=== PATIENT | female | born 1950 | race Caucasian/White ===

== ENCOUNTER → 2017-02-02 | Outpatient (CLI) | payer OTHER ==
[~2017-02-02] MED LIST: ALPR0.25 PO; BUSP10TA PO; CA C1TAB28 PO; CARV6.252 PO; ESZO2TAB33 PO; IOHEXOL 240 MG/ML 50ML VIAL. ONE; IOHEXOL 240 MG/ML 50ML VIAL. PO ONE; IOHEXOL 300 MG/ML 75 ML VIAL. IV ONE
[2017-02-02 15:49] LABS: BASO % 1 % (0-3); EOS % 1 % (0-3); HEMATOCRIT 39.1 % (36.0-47.0); HEMOGLOBIN 13.3 g/dL (12.0-15.5); LYMPH # 1.4 x10^3/uL (1.0-4.8); LYMPH % 28 % (24-48); MEAN CORPUSCULAR HEMOGLOBIN 31 pg (25-35); MEAN CORPUSCULAR HGB CONC 34 g/dL (31-37); MEAN CORPUSCULAR VOLUME 91 fL (79-100); MONO # 0.4 x10^3/uL (0.0-1.1); MONO % 7 % (0-9); NEUT # 3.2 x10^3uL (1.8-7.7); NEUT % 63 % (31-73); PLATELET COUNT 216 x10^3/uL (140-400); RED BLOOD COUNT 4.28 x10^6/uL (3.50-5.40); WHITE BLOOD COUNT 5.1 x10^3/uL (4.0-11.0)
[2017-02-02 15:57] LABS: ALBUMIN/GLOBULIN RATIO 1.3 (1.0-1.7); CALCIUM 9.1 mg/dL (8.5-10.1); GFR 55.8; POTASSIUM 3.8 mmol/L (3.5-5.1); TOTAL BILIRUBIN 0.3 mg/dL (0.2-1.0); TOTAL PROTEIN 7.1 g/dL (6.4-8.2)
--- NOTE | 2017-02-02 17:06 | RAD ---
EXAM: Abdomen and pelvis CT with intravenous contrast. HISTORY: Pain. TECHNIQUE: Computed tomographic images of the abdomen and pelvis were obtained following the administration of 75 cc Omnipaque 300 intravenous contrast. Multiplanar reformatting was performed. COMPARISON: Chest CT dated 11/09/2013. FINDINGS: Evaluation of the lower thorax demonstrates lingular and right middle lobe atelectasis or scarring. No focal hepatic lesion is seen. The gallbladder, pancreas, spleen and right adrenal gland are unremarkable. There is a 1.4 cm left adrenal nodule. There are small lateral renal cysts, the largest of which measures 2.4 cm within the left lower pole. The appendix is unremarkable. No abnormally thickened or dilated loop of bowel is seen. The uterus is surgically absent. There is no pathologically enlarged lymph node. There is no suspicious osseous lesion. IMPRESSION: 1. No acute abdominal or pelvic finding. 2. 1.4 cm left adrenal nodule. The stability of this finding compared to the study dated 11/09/2013 favors benignity. However, the attenuation of this lesion is not typical for an adenoma. Continued follow-up can be performed to confirm stability. 3. Bilateral renal cysts. PQRS Compliance Statement: One or more of the following individualized dose reduction techniques were utilized for this examination: 1. Automated exposure control 2. Adjustment of the mA and/or kV according to patient size 3. Use of iterative reconstruction technique
== END | disposition home or self-care (01) ==
LOC: CT 15:08
PROVIDERS: ATTEND Family Medicine
DX: R10.31 Right lower quadrant pain (principal); R10.11 Right upper quadrant pain
CPT/HCPCS: 36415; 74177; 80053; 82150; 83690; 85027; Q9966; Q9967

== ENCOUNTER → 2017-03-02 | Outpatient (CLI) | payer OTHER ==
[~2017-03-02] MED LIST changes: -IOHEXOL 240 MG/ML 50ML VIAL. ONE; -IOHEXOL 240 MG/ML 50ML VIAL. PO ONE; -IOHEXOL 300 MG/ML 75 ML VIAL. IV ONE
--- NOTE | 2017-03-02 16:15 | RAD ---
Exam: PA and lateral chest radiograph History: Pneumonia for 3 weeks. Comparison: 11/08/2013. Findings: Cardiomediastinal silhouette is within normal limits for size. Bilateral lung whaley are free of focal infiltrate. No pleural effusion is seen. Cervicothoracic junction demonstrates spinal fusion changes. Impression: No acute cardiopulmonary process.
== END | disposition home or self-care (01) ==
LOC: RAD 15:53
PROVIDERS: ATTEND Family Medicine
DX: R05 Cough (principal)
CPT/HCPCS: 71020

== ENCOUNTER → 2017-07-02 | Outpatient (CLI) | payer OTHER ==
[~2017-07-02] MED LIST changes: +ESZO2TAB21 PO; -ESZO2TAB33 PO; +IOHEXOL 240 MG/ML 50ML VIAL. ONE; +IOHEXOL 300 MG/ML 75 ML VIAL. IV ONE
--- NOTE | 2017-07-02 11:59 | RAD ---
CT of the abdomen and pelvis with contrast, 07/02/2017: History: Lower abdominal pain Multidetector CT imaging was performed following oral and IV administration of contrast. Comparison is made to a study from 02/02/2017. No hepatic abnormality is identified. No definite gallstones are seen. The pancreas is unremarkable. The spleen is of normal size. Small cysts are again noted in both kidneys. The kidneys show no evidence of obstruction. A 1.5 cm left adrenal nodule appears to be unchanged since 03/24/2016. This would favor a benign etiology such as an adenoma. There is moderate aortic calcific plaquing without evidence of aneurysm. No abdominal or pelvic adenopathy is seen. The uterus is surgically absent. There is moderate colonic mural thickening. This is best visualized in the cecum and right colon due to opacification of the colonic lumen at these levels due to the oral contrast material. There also appears to be mural thickening in the left colon and rectosigmoid, less clearly defined. There is no evidence of pneumatosis. The small bowel loops are of normal caliber with no significant mural thickening evident. No free air or significant free fluid is identified in the abdomen or pelvis. There are mild scattered degenerative changes in the spine. IMPRESSION: 1. Moderate colonic mural thickening compatible with nonspecific colitis. This is most likely on an infectious basis. Inflammatory bowel disease or ischemia are less likely possibilities. 2. Stable left adrenal nodule. 3. Bilateral renal cysts. PQRS Compliance Statement: One or more of the following individualized dose reduction techniques were utilized for this examination: 1. Automated exposure control 2. Adjustment of the mA and/or kV according to patient size 3. Use of iterative reconstruction technique
== END | disposition home or self-care (01) ==
LOC: CT 10:17
PROVIDERS: ATTEND Family Medicine
DX: N28.1 Cyst of kidney, acquired (principal); E27.8 Other specified disorders of adrenal gland; I70.0 Atherosclerosis of aorta; M47.899 Other spondylosis, site unspecified; R19.7 Diarrhea, unspecified; Z90.710 Acquired absence of both cervix and uterus
CPT/HCPCS: 74177; Q9966; Q9967

== ENCOUNTER → 2017-12-17 | Outpatient (CLI) | payer MEDICARE, OTHER ==
[~2017-12-17] MED LIST changes: +IOHEXOL 300 MG/ML 75 ML VIAL. ONE
--- NOTE | 2017-12-17 14:19 | RAD ---
CT of the chest, abdomen, and pelvis with contrast 12/17/2017 Indication: Pneumonia, right sided abdominal pain Comparison study: CT of the chest without contrast January 12, 2014 CT of the abdomen and pelvis with contrast June 27 1517 Technique: Multidetector CT imaging of the chest was performed following the administration of intravenous contrast. Sagittal and coronal reconstructions were created on an independent workstation and reviewed. Findings: Chest: Heart size is top normal. No significant pericardial effusion is seen. No pathologic mediastinal adenopathy is identified. No focal consolidation or infiltrate is seen. There is diffuse heterogeneity of the thyroid gland. The appearance is nonspecific. Consider follow-up thyroid ultrasound as clinically indicated. No pneumothorax or pleural effusion is seen. No acute osseous abnormality is identified. Limited visualization of the upper abdomen demonstrates no acute abnormality. Abdomen and pelvis: Minimal nonspecific prominence of central intrahepatic biliary ducts noted. The appearance is nonspecific. Correlate with serum bilirubin levels. The liver is otherwise grossly unremarkable. 1.5 cm nodule/mass left adrenal gland is stable from comparison study. Cysts are noted in the bilateral inferior kidneys. Other tiny areas of renal hypodensity are noted which also most likely represent small cysts, but are too small to characterize. The appearance is similar to comparison exam. Pancreas is somewhat atrophic in appearance but otherwise unremarkable. There is no evidence of bowel obstruction. The appendix is unremarkable in appearance. Mild gastric wall thickening may be present. Gastritis not excluded. The bladder is grossly unremarkable. No free fluid or free air is seen in the abdomen or pelvis. No acute osseous changes are seen. Impression: 1. No evidence of acute cardiopulmonary process. No evidence of pneumonia is identified 2. Mild thickening of the gastric body. Gastritis not excluded. Consider endoscopy as clinically indicated 3. Mild heterogeneity of the thyroid gland. Consider thyroid ultrasound as clinically indicated. 4. Minimal intrahepatic biliary ductal prominence. The appearance is nonspecific. Correlate with serum bilirubin levels PQRS Compliance Statement: One or more of the following individualized dose reduction techniques were utilized for this examination: 1. Automated exposure control 2. Adjustment of the mA and/or kV according to patient size 3. Use of iterative reconstruction technique
== END | disposition home or self-care (01) ==
LOC: CT 09:31
PROVIDERS: ATTEND Family Medicine
DX: J18.9 Pneumonia, unspecified organism (principal); R10.31 Right lower quadrant pain; F17.210 Nicotine dependence, cigarettes, uncomplicated
CPT/HCPCS: 71260; 74177; Q9966; Q9967

== ENCOUNTER → 2017-12-30 | Outpatient (CLI) | payer MEDICARE, OTHER ==
[~2017-12-30] MED LIST changes: -IOHEXOL 240 MG/ML 50ML VIAL. ONE; -IOHEXOL 300 MG/ML 75 ML VIAL. IV ONE; -IOHEXOL 300 MG/ML 75 ML VIAL. ONE
--- NOTE | 2017-12-30 10:35 | RAD ---
Thyroid ultrasound, 12/30/2017: History: Abnormal thyroid gland on CT scan The right lobe of the gland measures 4.8 x 1.7 x 1.4 cm while the left lobe of the gland measures 5.2 x 1.8 x 1.6 cm. There are numerous bilateral thyroid nodules. The largest of these lie centrally in the right lobe. It measures 1.9 x 1.5 x 1.2 cm. Its margins are smooth. It is solid and vascular with a small cystic component. It is wider than tall. It measured approximately 1.6 cm in greatest dimension on the 03/13/2014 exam. There are 2 additional nodules in the upper pole of the right lobe of the gland, the largest of which measures 7 mm. These are smoothly marginated with mixed hypoechoic and isoechoic internal echoes. There are at least 6 additional small nodules in the left lobe of the gland which demonstrate a similar sonographic appearance to these 2 right lobe nodules. The largest of these left lobe nodules measures 1.3 cm. The nodules demonstrate no calcifications or highly suspicious sonographic features. IMPRESSION: 1. Multinodular thyroid gland. 2. A dominant solid nodule in the right lobe of the gland has increased slightly in size since 2013. Ultrasound-guided biopsy is suggested for further evaluation.
--- NOTE | 2017-12-30 12:31 | RAD ---
Right upper quadrant abdominal ultrasound, 12/30/2017: History: Abdominal pain, abnormal CT findings The gallbladder is within normal limits in size. There is no sonographic evidence of cholelithiasis. No gallbladder wall thickening is seen. The common hepatic duct is mildly prominent measuring 7 mm. No intrahepatic biliary ductal dilatation is seen. There is no evidence of a hepatic mass. A 1.5 cm cyst is noted in the lower pole of the right kidney. The right kidney is otherwise unremarkable. The pancreas was not well defined. IMPRESSION: 1. No gallbladder abnormality is detected. 2. Slight dilatation of the common hepatic duct. Correlation with laboratory findings is suggested in determining the significance of this finding. 3. Small right renal cyst.
== END | disposition home or self-care (01) ==
LOC: US 08:28
PROVIDERS: ATTEND Family Medicine
DX: E04.2 Nontoxic multinodular goiter (principal); N28.1 Cyst of kidney, acquired; I10 Essential (primary) hypertension; F17.210 Nicotine dependence, cigarettes, uncomplicated
CPT/HCPCS: 76536; 76705

== ENCOUNTER → 2018-01-18 | Outpatient (CLI) | payer MEDICARE, OTHER ==
--- NOTE | 2018-01-18 14:31 | RAD ---
DATE: 01/18/2018 EXAM: MAMMO MARZENA SCREENING BILATERAL HISTORY: Routine screening COMPARISON: 11/13/2014 This study was interpreted with the benefit of Computerized Aided Detection (CAD). The breast parenchyma is heterogeneously dense, which could reduce sensitivity of mammography. Breast parenchyma level C. FINDINGS: 2-D and 3-D tomosynthesis imaging was performed in CC and MLO projections. No new or enlarging breast densities are seen. Benign type calcifications are present in both breasts. No suspicious microcalcifications have developed. IMPRESSION: Stable mammograms without evidence of malignancy. BI-RADS CATEGORY: 2 BENIGN FINDING(S) RECOMMENDED FOLLOW-UP: 12M 12 MONTH FOLLOW-UP PQRS compliance statement: Patient information was entered into a reminder system with a target due date for the next mammogram. Mammography is a sensitive method for finding small breast cancers, but it does not detect them all and is not a substitute for careful clinical examination. A negative mammogram does not negate a clinically suspicious finding and should not result in delay in biopsying a clinically suspicious abnormality. "Our facility is accredited by the [employer] Mammography [employer]."
--- NOTE | 2018-01-18 15:51 | RAD ---
Bone densitometry scan, 01/18/2018: History: Postmenopausal screening The lumbar spine and left hip were examined utilizing a DEXA technique. The bone mineral density in the lumbar spine as measured from the L1-L4 levels is 0.94 g/sq cm. This yields a T score of -2.0 compatible with osteopenia. The total T score at the left hip is -2.3, also compatible with osteopenia. IMPRESSION: Osteopenia
== END | disposition home or self-care (01) ==
LOC: DXRAD 10:01
PROVIDERS: ATTEND Family Medicine
DX: Z12.31 Encounter for screening mammogram for malignant neoplasm of breast (principal); M85.88 Other specified disorders of bone density and structure, other site; F17.210 Nicotine dependence, cigarettes, uncomplicated; Z78.0 Asymptomatic menopausal state
CPT/HCPCS: 77063; 77067; 77080

== ENCOUNTER → 2018-12-07 | Outpatient (CLI) | payer MEDICARE, OTHER ==
[~2018-12-07] MED LIST changes: -CARV6.252 PO; +CARV6.2541 PO
[2018-12-07 10:06] LABS: ALBUMIN 3.8 g/dL (3.4-5.0); DIRECT BILIRUBIN 0.1 mg/dL (0.0-0.2); TOTAL BILIRUBIN 0.4 mg/dL (0.2-1.0); TOTAL PROTEIN 6.9 g/dL (6.4-8.2)
--- NOTE | 2018-12-07 12:27 | RAD ---
Ultrasound abdomen complete 12/07/2018 Clinical indications: Right upper quadrant abdominal pain. COMPARISON: Ultrasound 12/30/2017, CT abdomen and pelvis 07/02/2017 FINDINGS: Visualized proximal pancreas unremarkable. Visualized upper abdominal aorta and IVC unremarkable. There is scattered calcified plaque throughout the abdominal aorta. The gallbladder is normal in size and configuration without wall thickening, pericholecystic fluid or cholelithiasis. No intra or extrahepatic biliary ductal dilatation with the common bile duct measuring 3 mm. The liver is homogeneous in echotexture without discrete mass or fluid collection in the visualized portions. Right kidney measures 9.6 cm in length without hydronephrosis. There is a simple appearing cyst in the interpolar right kidney measuring up to 1.5 cm. The left kidney measures 10 1 cm in length without hydronephrosis. There is a simple appearing cyst in the inferior pole of the left kidney measuring up to 3.1 cm. Spleen is normal in size measuring 8.1 cm in length. IMPRESSION: 1. No cholelithiasis or sonographic evidence of acute cholecystitis. 2. A few bilateral simple renal cysts. Electronically signed by: Jorge A Hawkins MD (12/07/2018 12:22 PM) [facility]
== END | disposition home or self-care (01) ==
LOC: US 07:37
PROVIDERS: ATTEND Internal Medicine Gastroenterology
DX: N28.1 Cyst of kidney, acquired (principal); I70.0 Atherosclerosis of aorta
CPT/HCPCS: 36415; 76700; 80076

== ENCOUNTER 2019-06-01 23:52 | Emergency (ER) | payer MEDICARE ==
[~2019-06-01] VITALS: Ht 157.5 cm; Wt 57.6 kg
--- NOTE | 2019-06-02 00:29 | PHYS DOC ---
Past History Past Medical History: Hypertension, Other Past Surgical History: Hysterectomy Smoking: Less than 1pk/day Alcohol Use: None Drug Use: None Adult General Chief Complaint Chief Complaint: ABDOMINAL PAIN HPI HPI Patient is a 68-year-old female who presents with complaint of right upper quadrant abdominal pain that she indicates that had started yesterday but had come back down and then this evening when she ate dinner, she noted the pain had returned. She states the pain is radiating from the right upper quadrant straight into her back. She reports nausea and rates the pain at a 9 out of 10. Patient states that she has had a history of similar episodes in the past but states that is been quite some time. She has seen a surgeon but has not been scheduled for cholecystectomy. She denies any chest pain or shortness of breath.[] Review of Systems Review of Systems Constitutional: Denies fever or chills [] Respiratory: Denies cough or shortness of breath [] Cardiovascular: No additional information not addressed in HPI [] GI: Complains of abdominal pain with nausea. Denies vomiting or diarrhea [] Musculoskeletal: Positive right-sided back pain [] Integument: Denies rash or skin lesions [] All other systems were reviewed and found to be within normal limits, except as documented in this note. Allergies Allergies Allergies Coded Allergies Type Severity Reaction Last Updated Verified erythromycin base Allergy Unknown 11/09/13 Yes Physical Exam Physical Exam Constitutional: Well developed, well nourished, no acute distress, non-toxic appearance. [] HENT: Normocephalic, atraumatic, bilateral external ears normal, oropharynx moist, no oral exudates, nose normal. [] Eyes: PERRLA, EOMI, conjunctiva normal, no discharge. [] Neck: Normal range of motion, no tenderness, supple, no stridor. [] Cardiovascular:Heart rate regular rhythm, no murmur [] Lungs & Thorax: Bilateral breath sounds clear to auscultation [] Abdomen: Bowel sounds normal, soft, with moderate right upper quadrant tenderness. [] Skin: Warm, dry, no erythema, no rash. [] Extremities: No tenderness, no cyanosis, no clubbing, ROM intact, no edema. [] Neurologic: Alert and oriented X 3, no focal deficits noted. [] EKG EKG [] Radiology/Procedures Radiology/Procedures [] Impressions: PROCEDURE: ABDOMEN LTD Right upper quadrant abdominal ultrasound History: Right upper quadrant pain radiates to back. Comparison: Complete abdominal ultrasound 12/07/2018. Technique: Transabdominal ultrasound images are obtained. Findings: Visualized pancreas is unremarkable. Liver is normal in echogenicity. Right hepatic lobe measures 17.8 cm. Portal flow is hepatopedal. Gallbladder is distended. No gallbladder wall thickening or cholelithiasis or pericholecystic fluid. Sonographic Avila sign is negative. Common bile duct is dilated measuring 11 mm in diameter. The right kidney measures 9.9 cm in length and is without evidence of obstruction or stone. There is a 1.5 cm cyst in the lateral lower pole. Visualized portions of the aorta and IVC have normal caliber. IMPRESSION: 1. Common bile duct is dilated measuring up to 11 mm. On prior study it measured 3 mm. Distal obstructing process cannot be excluded. Suggest correlation with laboratory values, if abnormal consider MRCP. 2. Small right renal cyst. Electronically signed by: Gurdeep Wall MD (06/02/2019 2:00 AM) [facility] Course & Med Decision Making Course & Med Decision Making Pertinent Labs and Imaging studies reviewed. (See chart for details) [] Dragon Disclaimer Dragon Disclaimer This electronic medical record was generated, in whole or in part, using a voice recognition dictation system. Departure Departure: Impression: Primary Impression: RUQ abdominal pain Disposition: 01 HOME, SELF-CARE Condition: STABLE Referrals: KATIUSKA PIKE MD (PCP) Patient Instructions: Abdominal Pain, HIDA (Hepatobilliary) Scan Scripts Ondansetron Hcl (ZOFRAN) 4 Mg Tablet 4 MG PO Q6HRS PRN for NAUSEA, #12 TAB Prov: DOC HANSON Jr. DO 06/02/19 Hydrocodone Bit/Acetaminophen (NORCO 5-325 TABLET) 1 Each Tablet 1 TAB PO PRN Q6HRS PRN for PAIN, #12 TAB 0 Refills Prov: DOC HANSON Jr. DO 06/02/19 DOC HANSON Jr. DO Jun 02, 2019 00:29
[2019-06-02] MEDS ORDERED: IV NORMAL SALINE 1,000ML 1,000 ML IV SCH (00:30)
[2019-06-02] MEDS ORDERED: ONDANSETRON PF 4 MG/2 ML VIAL. IV ONE (00:30)
[2019-06-02] MEDS ORDERED: HYDROmorphone PF 1 MG/ML DISP.SYRIN IV/SQ PRN (00:30)
[2019-06-02] MEDS ORDERED: ONDANSETRON PF 4 MG/2 ML VIAL. ONE (01:07)
[2019-06-02] MEDS ORDERED: HYDROmorphone PF 1 MG/ML DISP.SYRIN ONE (01:07)
[2019-06-02 01:09] LABS: BASO % 1 % (0-3); EOS # 0.1 x10^3/uL (0.0-0.7); EOS % 3 % (0-3); HEMATOCRIT 37.9 % (36.0-47.0); HEMOGLOBIN 12.7 g/dL (12.0-15.5); LYMPH # 1.5 x10^3/uL (1.0-4.8); LYMPH % 33 % (24-48); MEAN CORPUSCULAR HEMOGLOBIN 31 pg (25-35); MEAN CORPUSCULAR HGB CONC 33 g/dL (31-37); MEAN CORPUSCULAR VOLUME 93 fL (79-100); MONO # 0.5 x10^3/uL (0.0-1.1); MONO % 10 % (0-9); NEUT # 2.4 x10^3uL (1.8-7.7); NEUT % 53 % (31-73); PLATELET COUNT 202 x10^3/uL (140-400); RED BLOOD COUNT 4.07 x10^6/uL (3.50-5.40); WHITE BLOOD COUNT 4.5 x10^3/uL (4.0-11.0)
[2019-06-02 01:22] LABS: ALBUMIN 3.7 g/dL (3.4-5.0); ALBUMIN/GLOBULIN RATIO 1.3 (1.0-1.7); CALCIUM 9.4 mg/dL (8.5-10.1); GFR 55.5; POTASSIUM 3.7 mmol/L (3.5-5.1); TOTAL BILIRUBIN 0.2 mg/dL (0.2-1.0); TOTAL PROTEIN 6.6 g/dL (6.4-8.2)
[2019-06-02 01:28] LABS: BACTERIA,URINE 0 /HPF (0-FEW); BILIRUBIN,URINE NEG (NEG); CLARITY,URINE CLEAR; COLOR,URINE YELLOW; GLUCOSE,URINE NEG (NEG); NITRITE,URINE NEG (NEG); RBC,URINE OCC /HPF (0-2); SQUAMOUS EPITHELIAL CELL,UR FEW /LPF; UROBILINOGEN,URINE 0.2 mg/dL (0.2 mg/dL); WBC,URINE OCC /HPF (0-4)
--- NOTE | 2019-06-02 02:03 | RAD ---
Right upper quadrant abdominal ultrasound History: Right upper quadrant pain radiates to back. Comparison: Complete abdominal ultrasound 12/07/2018. Technique: Transabdominal ultrasound images are obtained. Findings: Visualized pancreas is unremarkable. Liver is normal in echogenicity. Right hepatic lobe measures 17.8 cm. Portal flow is hepatopedal. Gallbladder is distended. No gallbladder wall thickening or cholelithiasis or pericholecystic fluid. Sonographic Avila sign is negative. Common bile duct is dilated measuring 11 mm in diameter. The right kidney measures 9.9 cm in length and is without evidence of obstruction or stone. There is a 1.5 cm cyst in the lateral lower pole. Visualized portions of the aorta and IVC have normal caliber. IMPRESSION: 1. Common bile duct is dilated measuring up to 11 mm. On prior study it measured 3 mm. Distal obstructing process cannot be excluded. Suggest correlation with laboratory values, if abnormal consider MRCP. 2. Small right renal cyst. Electronically signed by: Gurdeep Wall MD (06/02/2019 2:00 AM) [facility]
[2019-06-02 02:14] VITALS: BP 151/70
[2019-06-02] MEDS ORDERED: ONDA4TAB7 PO (02:28)
[2019-06-02] MEDS ORDERED: HYDR-3165 PO (02:28)
== END 2019-06-02 02:47 | disposition home or self-care (01) ==
LOC: ER 23:52
DX: R10.11 Right upper quadrant pain (principal); N28.1 Cyst of kidney, acquired; I10 Essential (primary) hypertension; F17.200 Nicotine dependence, unspecified, uncomplicated; Z90.710 Acquired absence of both cervix and uterus; Z88.1 Allergy status to other antibiotic agents
CPT/HCPCS: 36415; 76705; 80053; 81001; 83690; 85025; 96374; 96375; 99285; J1170; J2405; J7030

== ENCOUNTER → 2019-06-16 | Outpatient (CLI) | payer MEDICARE ==
[2019-06-02 02:14] VITALS: BP 151/70
[~2019-06-16] MED LIST changes: +HYDR-3165 PO; +IOHEXOL 240 MG/ML 50ML VIAL. ONE; +IOHEXOL 300 MG/ML 75 ML VIAL. IV ONE; +ONDA4TAB7 PO
--- NOTE | 2019-06-16 11:31 | RAD ---
PQRS Compliance statement: One or more of the following individualized dose reduction techniques were utilized for this examination: 1. Automated exposure control. 2. Adjustment of the mA and/or kV according to patient size. 3. Use of iterative reconstruction technique. Indication:Right upper quadrant pain. TECHNIQUE: CT abdomen and pelvis with IV contrast with multiplanar reformats. COMPARISON: 12/17/2017 FINDINGS: Heart is normal in size. No pericardial or pleural effusion. Clear lung bases. Liver, spleen, pancreas, gallbladder, right adrenal within normal limits. Left adrenal gland nodule is seen measuring 1.6 x 1.5 cm, previously 1.7 x 1.5 cm. Simple appearing bilateral renal cysts are seen, the largest on the left side measuring 2.7 cm. No nephrolithiasis or hydronephrosis. No enlarged retroperitoneal or pelvic adenopathy. No free pelvic fluid or ascites. No bowel obstruction. Normal appendix. Status post hysterectomy. Urinary bladder demonstrates no radiopaque stones. No suspicious bony lesion. IMPRESSION: No acute findings. Stable left adrenal gland nodule likely adenoma. Electronically signed by: Jean-Claude Birmingham DO (06/16/2019 11:28 AM) [facility]
== END | disposition home or self-care (01) ==
LOC: CT 09:28
PROVIDERS: ATTEND Family Medicine
DX: E27.8 Other specified disorders of adrenal gland (principal); Z90.710 Acquired absence of both cervix and uterus
CPT/HCPCS: 74177; Q9967

== ENCOUNTER → 2019-12-07 | Outpatient (CLI) | payer MEDICARE, OTHER ==
[~2019-12-07] MED LIST changes: -IOHEXOL 240 MG/ML 50ML VIAL. ONE; -IOHEXOL 300 MG/ML 75 ML VIAL. IV ONE
--- NOTE | 2019-12-07 16:00 | RAD ---
EXAM: BILATERAL DIGITAL 3D SCREENING MAMMOGRAPHY. HISTORY: Routine mammographic screening. TECHNIQUE: Bilateral digital 3D and tomographic images were obtained in CC and MLO projections. Computer-aided detection was applied. COMPARISON: 01/18/2018. COMPOSITION: C. The breasts are heterogeneously dense, which may obscure small masses. FINDINGS: Scattered and coarse calcifications are benign. There are no suspicious masses, microcalcifications or architectural distortion. The parenchymal pattern is stable. BI-RADS CATEGORY 2: Benign. RECOMMENDATION: 1. Routine screening mammography in one year. If mammography demonstrates dense breast tissue (heterogenously dense or extremely dense, category C or D), which could hide abnormalities, and if other risk factors for breast cancer have been identified, supplemental screening tests that may be suggested by the ordering physician may be of benefit. Dense breast tissue, in and of itself, is a relatively common condition. Therefore, this information is not provided to cause undue concern, but rather to raise awareness and to promote discussion with the referring physician regarding the presence of other risk factors, in addition to dense breast tissue. The results of this mammography examination is provided to the patient and referring physician. The patient should contact their referring physician if any questions or concerns exist regarding this report. PQRS compliance statement - Patient information was entered into a reminder system with a target due date for the next mammogram. "Our facility is accredited by the [employer] Mammography Program." Electronically signed by: Yesika Hylton MD (12/07/2019 3:57 PM) [id number]
== END | disposition home or self-care (01) ==
LOC: MAMMO 08:09
PROVIDERS: ATTEND Family Medicine
DX: Z12.31 Encounter for screening mammogram for malignant neoplasm of breast (principal); N64.89 Other specified disorders of breast
CPT/HCPCS: 77063; 77067

== ENCOUNTER → 2020-03-28 | Outpatient (CLI) | payer MEDICARE, OTHER ==
--- NOTE | 2020-03-28 10:41 | RAD ---
EXAM: CERVICAL SPINE 2-3V 03/28/2020 9:55 AM CLINICAL INDICATION:Neck pain COMPARISON:None TECHNIQUE:4 views of the cervical spine FINDINGS:The cervical spine is viewed through the inferior endplate of C7 on lateral projection. No acute fracture. Alignment is normal. There are surgical changes of anterior cervical discectomy and fusion at C6-C7. Anterior plate and screws are intact. The interbody graft is well incorporated. There is moderate disc space narrowing throughout the remainder of the cervical spine. Multilevel uncovertebral joint proliferation and facet arthrosis noted. The dens is intact. Prevertebral soft tissue is normal. IMPRESSION: 1. Surgical changes of ACDF at C6-C7. No evidence of complication. 2. Moderate multilevel degenerative disc disease. Electronically signed by: Kira Perry MD (03/28/2020 10:38 AM) [id number]
== END | disposition home or self-care (01) ==
LOC: DXRAD 09:49
PROVIDERS: ATTEND Family Medicine
DX: M48.02 Spinal stenosis, cervical region (principal); M50.30 Other cervical disc degeneration, unspecified cervical region; Z98.1 Arthrodesis status
CPT/HCPCS: 72040

== ENCOUNTER → 2020-08-07 | Outpatient (CLI) | payer MEDICARE ==
[~2020-08-07] VITALS: Ht 154.9 cm; Wt 57.2 kg
[~2020-08-07] MED LIST changes: +SINCALIDE 1.14 MCG in IV NORMAL SALINE 50ML 30 ML IV ONE
--- NOTE | 2020-08-07 10:48 | RAD ---
EXAM: HEPATOBILIARY SCINTIGRAPHY WITH GALLBLADDER EJECTION FRACTION CALCULATION. HISTORY: Right upper quadrant pain and nausea. TECHNIQUE: 5.5 mCi technetium-99m Choletec were administered intravenously and scintigraphic images of the abdomen obtained. After filling of the gallbladder, 1.14 mcg of sincalide were infused and the gallbladder ejection fraction calculated. FINDINGS: There is prompt hepatic clearance of tracer from the blood pool. There is homogeneous distribution throughout the liver. There is normal filling of the gallbladder and clearance into the biliary tree and small bowel. The gallbladder ejection fraction is 0% (normal >35%). IMPRESSION: 1. Decreased gallbladder ejection fraction suggesting biliary dyskinesia. Electronically signed by: Yesika Hylton MD (08/07/2020 10:45 AM) [id number]
== END | disposition home or self-care (01) ==
LOC: NM 07:42
PROVIDERS: ATTEND Internal Medicine Gastroenterology
DX: R11.0 Nausea (principal); R10.11 Right upper quadrant pain
CPT/HCPCS: 78227; A9537; J2805

== ENCOUNTER → 2021-07-22 | Outpatient (CLI) | payer MEDICARE ==
[~2021-07-22] MED LIST changes: -SINCALIDE 1.14 MCG in IV NORMAL SALINE 50ML 30 ML IV ONE
--- NOTE | 2021-07-22 11:24 | RAD ---
EXAM: CT CHEST WITHOUT CONTRAST (LDCT LUNG CANCER SCREENING). HISTORY: Risk factors for pulmonary malignancy. Cigarette smoking history. TECHNIQUE: CT of the chest was performed without intravenous contrast using a low-dose lung screening protocol. Findings analysis is based on ACR Lung-RADS v1.1. *One or more of the following individual ized dose reduction techniques were utilized for this examination: 1. Automated exposure control. 2. Adjustment of the mA and/or kV according to patient size. 3. Use of iterative reconstruction technique. COMPARISON: 12/17/2017. FINDINGS: The heart is normal in size. There is a tortuous descending thoracic aorta. No pathological ly enlarged lymph node is seen. There is no infiltrate, pleural effusion or pneumothorax. There is mi nimal biapical pleural parenchymal scarring. There is lingular and medial right middle lobe and bilat eral lower lobe linear atelectasis or scarring. There is minimal posterior dependent atelectasis. The re is a tiny calcified granuloma within the right upper lobe. There is no acute or suspicious finding involving the upper abdomen. There are degenerative changes involving the spine. There is instrument ed anterior spinal fusion and interbody fusion involving the lower cervical spine. IMPRESSION/RECOMMENDATION: 1. ACR Lung-RADS category: 1. Continue annual screening with low dose CT in 12 months. 2. No acute thoracic finding. Electronically signed by: Nasra Wray MD (07/22/2021 11:22 AM) [id number]
--- NOTE | 2021-07-22 17:34 | RAD ---
EXAM: DUAL ENERGY X-RAY ABSORPTIOMETRY (DEXA). HISTORY: Postmenopausal screening. FINDINGS: The lowest measured T-score is -2.7 in the right femoral neck, based on a bone mineral dens ity of 0.593 g/cm^2. Refer to the worksheets for full detail. No comparison examinations are available. IMPRESSION: 1. Osteoporosis. Bone mineral density yields a T-score of -2.5 or less. Fracture risk is high. 2. FRAX report: Not calculated. METHODOLOGY: Dual energy x-ray absorptiometry was performed to measure bone mineral density. The foll owing analysis is based on the 2019 Official Positions of the International Society for Clinical Dens itometry: Measurements of the hips and the average of L1-L4 are preferred. When the spine and/or hip cannot be feasibly measured or interpreted, or in the setting of hyperparathyroidism, distal radial bone minera l density may be measured. The lumbar spine T-score is based on the average bone mineral density of L1-L4. In the setting of art ifact or anatomic abnormality, some lumbar levels may be excluded, and the remaining levels used for calculation. A single lumbar level is not used for diagnosis, and if only a single level is available for assessment, another anatomic site will be used to assign a diagnosis. The hip T-score is based on the bone mineral density measurement of the femoral neck or total proxima l femur of either side, whichever is lowest. Bilateral mean values are not used for diagnosis. The forearm T-score is derived from 33% of the distal radius of the nondominant forearm. Electronically signed by: Nasra Wray MD (07/22/2021 5:31 PM) [id number]
== END ==
LOC: DXRAD 10:44
PROVIDERS: ATTEND Family Medicine
DX: Z12.2 Encounter for screening for malignant neoplasm of respiratory organs (principal); M81.0 Age-related osteoporosis without current pathological fracture; Z87.891 Personal history of nicotine dependence
CPT/HCPCS: 71271; 77080